=== PATIENT | female | born 1960 | race Caucasian/White ===

== ENCOUNTER 2021-01-02 12:38 | Outpatient (CLI) | payer MEDICARE, MEDICAID, SELFPAY ==
--- NOTE | 2021-01-02 | ECHO_ITS ---
Patient Info Name: Cait aM Age: 60 years : 1960 Gender: Female Ht: 65 in Wt: 173 lbs BSA: 1.92 m2 HR: 60 bpm BP: 155 / 80 mmHg Heart Rhythm: Sinus Rhythm Exam Date: 01/02/2021 1:22 PM [facility] Patient Status: Outpatient Admit Date: 01/02/2021 Staff Ordering Physician: MelissaNeris APRN Gameroom Technician: Hermila Caba RDCS Attending Provider: Melissa, Neris Elizabeth APRN Referring Physician: Liat JUSTICE; Exam Type: CA echo doppler color flow Study Info Indications - Presence of mechanical mitral valve replacement - rheumatic fever as child Complete two-dimensional, color flow and Doppler transthoracic echocardiogram is performed. Summary 1. Complete two-dimensional, color flow and Doppler transthoracic echocardiogram is performed. 2. Left ventricular chamber dimension is mildly enlarged. 3. Left ventricular systolic function is normal, estimated at 55-60%. 4. The left ventricular diastolic function is grade III diastolic dysfunction. 5. E/e' 29 is elevated. 6. Left atrial chamber dimension is moderately enlarged. 7. Right atrial chamber dimension is mildly enlarged. 8. There is mild aortic valve sclerosis. 9. There is mild aortic valve regurgitation. 10. The mechanical mitral valve leaflefts are not well seen. 11. There is mild stenosis of the mechanical mitral valve based on valve area of 1.5 cm2 by continuity equation and mean gradient of 3 mmHg. 12. There is trace tricuspid valve regurgitation. 13. No pulmonary hypertension, estimated pulmonary arterial systolic pressure is 33 mmHg. Left Ventricle E/e' 29 is elevated. Left ventricular chamber dimension is mildly enlarged. Left ventricular systolic function is normal, estimated at 55-60%. The left ventricular diastolic function is grade III diastolic dysfunction. Right Ventricle Right ventricular chamber dimension is normal. Right ventricular systolic function is normal. Left Atria Left atrial chamber dimension is moderately enlarged. Right Atria Right atrial chamber dimension is mildly enlarged. Aortic Valve The aortic valve is trileaflet. There is mild aortic valve sclerosis. There is no aortic valve stenosis. There is mild aortic valve regurgitation. Pulmonic Valve There is no pulmonic regurgitation. Mitral Valve The mechanical mitral valve leaflefts are not well seen. There is mild stenosis of the mechanical mitral valve based on valve area of 1.5 cm2 by continuity equation and mean gradient of 3 mmHg. There is no regurgitation of the mechanical mitral valve. Tricuspid Valve There is trace tricuspid valve regurgitation. No pulmonary hypertension, estimated pulmonary arterial systolic pressure is 33 mmHg. Pericardium/Pleural There is no pericardial effusion. Inferior Vena Cava Normal inferior vena cava with >50% collapse upon inspiration consistent with normal right atrial pressure, 5 mmHg. Aorta The aortic root size at the sinus of Valsalva is not well visualized. Left Ventricular Outflow Tract Name Value Normal LVOT 2D LVOT Diameter 1.7 cm LVOT Doppler LVOT Peak Gradien
[2021-01-02 15:25] LABS: Basophils Absolute Auto 0.1 K/mm3 (0.0-0.1); Basophils Percent Auto 0.8 % (0.2-1.2); Eosinophils Absolute Auto 0.3 K/mm3 (0-0.3); Eosinophils Percent Auto 3.1 % (0-4.4); Hematocrit 42.3 % (37.0-47.0); Immature Granulocyte Absolute 0.05 K/mm3 (0.00-0.031); Immature Granulocyte Percent A 0.6 % (0-0.5); Lymphocytes Absolute Auto 1.29 K/mm3 (0.9-3.2); Lymphocytes Percent Auto 15.5 % (18.3-44.2); Mean Corpuscular HGB Conc 30.7 g/dl (32-36); Mean Corpuscular Hemoglobin 26.9 pg (26-34); Mean Corpuscular Volume 87.4 fl (80-100); Mean Platelet Volume 10.5 fl (7.4-10.4); Monocytes Absolute Auto 0.6 K/mm3 (0.1-0.6); Monocytes Percent Auto 6.8 % (2.6-8.5); Neutrophils Absolute Auto 6.1 K/mm3 (1.3-6.7); Neutrophils Percent Auto 73.2 % (45.5-73.1); Platelet Count Result 191 k/mm3 (150-375); Red Blood Count 4.84 M/mm3 (4.2-5.4); Red Cell Distribution Width 15.9 % (11.5-14.5); White Blood Count 8.3 K/mm3 (4.5-10.0)
[2021-01-02 16:13] LABS: MALB Creatinine Ratio 34.9 mg/g (0-30); Microalbumin Urine Random 78.1 mg/L (0-16.7)
[2021-01-02 16:28] LABS: Free T4 Free Thyroxine 0.86 ng/mL (0.78-2.19); Vitamin D 25 Hydroxy 21.8 ng/mL
[2021-01-02 21:21] LABS: Hemoglobin A1C 5.4 % (<5.7)
[2021-01-03 13:45] LABS: Alanine Aminotransferase 16 U/L (4-35); Alkaline Phosphatase 100 U/L (38-126); Anion Gap 3 mmol/L (8-16); Aspartate Amino Transferase 30 U/L (14-36); Bilirubin,Total 0.2 mg/dL (0.2-1.3); Blood Urea Nitrogen 10 mg/dL (7-17); Calcium 9.2 mg/dL (8.4-10.2); Carbon Dioxide 29 mmol/L (22-30); Chloride 108 mmol/L (98-107); Cholesterol 212 mg/dL (0-200); Estimated Glomerular Filt Rate 56; Glucose 102 mg/dL (65-105); HDL Direct 57 mg/dL; Potassium 4.8 mmol/L (3.4-5.0); Sodium 140 mmol/L (137-145); Triglycerides 138 mg/dL (<150)
[2021-01-03 13:57] LABS: LDL Cholesterol Direct 112 mg/dL
== END 2021-01-02 12:39 | disposition home or self-care (01) ==
PROVIDERS: PCP Nurse Practitioner Family; Visit Provider Nurse Practitioner Family
DX: E11.9 Type 2 diabetes mellitus without complications (principal); E78.2 Mixed hyperlipidemia; I11.0 Hypertensive heart disease with heart failure; I50.22 Chronic systolic (congestive) heart failure; R53.83 Other fatigue; E55.9 Vitamin D deficiency, unspecified; Z95.4 Presence of other heart-valve replacement
CPT/HCPCS: 36415; 80053; 80061; 82043; 82306; 83036; 84439; 84443; 84480; 85025; 93306

== ENCOUNTER 2023-03-23 17:35 | Emergency (ER) | payer OTHER, SELFPAY ==
--- NOTE | ~2023-03-23 | XR_ITS ---
Right Hand Technique: PA, oblique, and lateral views were obtained. Clinical History: Status post fall Findings: No acute fracture or dislocation is seen. Osseous alignment is anatomic. There is moderate degenerative change of the interphalangeal joint of the thumb, and the second and third DIP joints. T here is advanced degenerative change the first CMC joint and STT articulations.. Soft tissues are unr emarkable. Impression: No fracture or dislocation. Degenerative changes at the first CMC joint, STT articulations, interphalangeal joint of the thumb, a nd second and third DIP joints, as detailed above. Reviewed, dictated and finalized at location M. Impression: No fracture or dislocation. Degenerative changes at the first CMC joint, STT articulations, interphalangeal joint of the thumb, and second and third DIP joints, as detailed above.
--- NOTE | ~2023-03-23 | XR_ITS ---
Right Shoulder Technique: AP and scapular Y views were obtained. Clinical History: Pain Findings: No acute fracture or dislocation is seen. Intramedullary cecilia with proximal an distal interl ocking screws is present in the visualized humerus, with healing fracture of the right proximal humer al shaft, as well as additional healing fracture at the mid humeral shaft. Glenohumeral and AC joints are intact. Soft tissues are unremarkable. Impression: No acute abnormality. Healing fractures of the proximal humeral shaft and mid humeral shaft, with humeral intramedullary ro d in place. Reviewed, dictated and finalized at location . Impression: No acute abnormality. Healing fractures of the proximal humeral shaft and mid humeral shaft, with hum eral intramedullary cecilia in place.
[2023-03-23 17:39] VITALS: BP 152/62; PULSE 62; RESP 20; TEMP 36.4; O2SAT 97
[2023-03-23] MEDS: ACETAMINOPHEN 325 MG TABLET 650 MG PO (17:53)
--- NOTE | 2023-03-23 18:12 | ED.UPPEXIN ---
HPI - Extremity Injury (Upper) General Chief Complaint: Extremity Injury, Upper Stated Complaint: RIght Hand Time Seen by Provider: 03/23/23 17:44 History of Present Illness HPI narrative: 63-year-old female reports for evaluation for right hand pain and swelling and right shoulder pain since yesterday. Patient says she was walking her dog and her dog jerked her to the ground, causing her to land on an outstretched hand. She is complaining of pain in her right shoulder and over the third through fifth metacarpals and the third through fifth MCPs. She denies pain to her elbow, forearm or wrist. She does report bruising to the palmar aspect of her hand. She denies hitting her head or losing consciousness. Denies other injuries acquired in the fall. Reports taking Tylenol for pain, last dose 6 hours ago. Related Data Allergies Allergy/AdvReac Type Severity Reaction Status Date / Time iodine Allergy Unknown Verified 09/18/16 06:25 Review of Systems Review of Systems: CONSTITUTIONAL: Denies fever, chills EYES: Denies visual changes, redness, or discharge. ENT: Denies rhinorrhea, congestion, sore throat, or otalgia. CARDIOVASCULAR: Denies chest pain, palpitations, or edema. RESPIRATORY: Denies cough or dyspnea. GASTROINTESTINAL: Denies abdominal pain, nausea, vomiting, or diarrhea. GENITOURINARY: Denies dysuria or hematuria. SKIN: Denies rash or itching. MUSCULOSKELETAL: See HPI NEUROLOGIC: Denies headache, numbness, dizziness, or weakness. PSYCHIATRIC: Denies anxiety or depression. [facility] Social History Social History Smoking status: Smoker, status unknown Alcohol intake: current Exam Narrative: GENERAL: Well-appearing, in no acute distress. HEAD: Normocephalic NECK: Supple. CHEST: No respiratory distress. Clear to auscultation, no adventitious breath sounds. HEART: Regular rate and rhythm. Normal peripheral pulses. Holosystolic murmur heard, patient has mechanical mitral valve EXTREMITIES: RUE: Tenderness to the GH and AC joint, w/o overlying edema or skin changes. Limited abduction which pt reports is her baseline, otherwise full ROM. Tenderness and edema to the 3-5th metacarpals and MCPs with ecchymosis over the palmar aspect. No tenderness to wrist, forearm or elbow. No snuffbox tenderness. Full range of motion of wrist. 90 degree flexion of 2nd-4th fingers, full extension of fingers. Radial pulse 2+. Cap refill less than 2. Sensation intact throughout. SKIN: Warm, dry, no rash. NEURO: No focal deficits. Alert and oriented x3. PSYCH: Normal mood and affect. Course Vital Signs Vital signs: Vital Signs Temperature 97.6 F 03/23/23 17:39 Pulse Rate 62 03/23/23 17:39 Respiratory Rate 20 03/23/23 17:39 Blood Pressure 152/62 H 03/23/23 17:39 Pulse Oximetry 97 03/23/23 17:39 Oxygen Delivery Room Air 03/23/23 17:39 Temperature 97.6 F 03/23/23 17:39 Pulse Rate 66 03/23/23 19:02 Respiratory Rate 18 03/23/23 19:02 Blood Pressure 148/76 H 03/23/23 19:02 Pulse Oximetry 99 03/23/23 19:02 Oxygen Delivery Room Air 03/23/23 17:39 MDM - Extremity Injury (Upper) MDM Narrative Medical decision making narrative: 63-year-old female reports for evaluation for right hand pain and swelling and right shoulder pain after she fell yesterday. Vital stable other than mildly elevated blood pressure. Exam significant for the above. X-ray of the shoulder shows no acute abnormality, there is evidence of healing fractures of the proximal humeral shaft and mid humeral shaft with humeral intramedullary cecilia in place. X-ray of the hand shows no acute fracture or dislocation but does show degenerative changes. Imaging discussed with the patient. Will treat for shoulder strain and ham strain. Hand placed in Lenin bandage and encouraged RICE and close follow-up with PCP. Strict ED return precautions discussed. She is agreeable to plan
[2023-03-23 19:02] VITALS: BP 148/76; PULSE 66; RESP 18; O2SAT 99
== END 2023-03-23 19:03 | disposition home or self-care (01) ==
PROVIDERS: Emergency Provider Physician Assistant; PCP Family Medicine
DX: S43.401A Unspecified sprain of right shoulder joint, initial encounter (principal); S63.91XA Sprain of unspecified part of right wrist and hand, initial encounter; W18.39XA Other fall on same level, initial encounter; Y93.K1 Activity, walking an animal
CPT/HCPCS: 73030; 73130; 99284; A9270

== ENCOUNTER 2023-05-13 10:46 | Outpatient (CLI) | payer OTHER, SELFPAY ==
--- NOTE | ~2023-05-13 | XR_ITS ---
EXAM: XR shoulder RT min 2V DATE: 05/13/2023 11:19 HISTORY: PAIN IN RIGHT SHOULDER;CERVICALGIA . COMPARISON: 03/23/2023. FINDINGS: Partially visualized uncomplicated appearing humeral fixation hardware. Decreased minerali zation. No fracture or dislocation. No lytic or blastic lesion. Partially visualized healing/healed r ight humeral proximal shaft and midshaft fractures. Mild AC and glenohumeral joint degenerative zepeda e. No erosion or periosteal change. Right midlung scar. 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 No radiographic evidence of hard guzmán-related complication. Reviewed, dictated and finalized at location K. 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 No radiogr aphic evidence of hardware-related complication.
--- NOTE | ~2023-05-13 | XR_ITS ---
XR cervical spine 4-5V 05/13/2023 11:19 Indication: Right shoulder pain Procedure: 4 view cervical spine Comparison: 12/29/2015 Findings: There is stable degenerative anterolisthesis at C4-5. There is disc narrowing at C5-6 and C 6-7. There is moderate multilevel uncinate and facet hypertrophy of the mid and lower cervical spine. No acute fracture or traumatic malalignment. No prevertebral soft tissue swelling. Impression: 1: Moderate-severe cervical spondylosis. Reviewed, dictated and finalized at location L. Impression: 1: Moderate-severe cervical spondylosis.
== END 2023-05-13 10:47 | disposition home or self-care (01) ==
PROVIDERS: PCP Family Medicine; Visit Provider Nurse Practitioner Adult Health
DX: M47.892 Other spondylosis, cervical region (principal); M19.011 Primary osteoarthritis, right shoulder
CPT/HCPCS: 72050; 73030

== ENCOUNTER 2023-09-04 10:40 | Outpatient (CLI) | payer OTHER, SELFPAY ==
[2023-09-04 11:18] LABS: Basophils Absolute Auto 0.1 K/mm3 (0.0-0.1); Basophils Percent Auto 0.8 % (0.2-1.2); Eosinophils Absolute Auto 0.3 K/mm3 (0-0.3); Eosinophils Percent Auto 2.9 % (0-4.4); Hematocrit 43.8 % (37.0-47.0); Hemoglobin 13.7 g/dL (12.0-15.0); Immature Granulocyte Absolute 0.04 K/mm3 (0.00-0.031); Immature Granulocyte Percent A 0.5 % (0-0.5); Lymphocytes Absolute Auto 1.07 K/mm3 (0.9-3.2); Lymphocytes Percent Auto 12.6 % (18.3-44.2); Mean Corpuscular HGB Conc 31.3 g/dl (32-36); Mean Corpuscular Hemoglobin 28.2 pg (26-34); Mean Corpuscular Volume 90.3 fl (80-100); Monocytes Absolute Auto 0.7 K/mm3 (0.1-0.6); Monocytes Percent Auto 7.9 % (2.6-8.5); Neutrophils Absolute Auto 6.4 K/mm3 (1.3-6.7); Neutrophils Percent Auto 75.3 % (45.5-73.1); Platelet Count Result 210 k/mm3 (150-375); Red Blood Count 4.85 M/mm3 (4.2-5.4); Red Cell Distribution Width 14.1 % (11.5-14.5); White Blood Count 8.5 K/mm3 (4.5-10.0)
[2023-09-04 11:30] LABS: Alanine Aminotransferase 15 U/L (6-35); Albumin Level 3.9 g/dL (3.5-5.1); Alkaline Phosphatase 109 U/L (38-126); Anion Gap 7 mmol/L (8-16); Aspartate Amino Transferase 26 U/L (14-36); Bilirubin,Total 0.5 mg/dL (0.2-1.3); Blood Urea Nitrogen 11 mg/dL (7-17); Calcium 8.6 mg/dL (8.4-10.2); Carbon Dioxide 27 mmol/L (22-30); Chloride 104 mmol/L (98-107); Cholesterol 233 mg/dL (0-200); Estimated Glomerular Filt Rate > 60; Glucose 102 mg/dL (65-110); HDL Direct 66 mg/dL; Potassium 4.1 mmol/L (3.4-5.0); Sodium 138 mmol/L (137-145); Triglycerides 71 mg/dL (<150)
[2023-09-04 11:41] LABS: LDL Cholesterol Direct 128 mg/dL
== END 2023-09-04 10:41 | disposition home or self-care (01) ==
PROVIDERS: PCP Family Medicine; Visit Provider Family Medicine
DX: E78.5 Hyperlipidemia, unspecified (principal); J44.9 Chronic obstructive pulmonary disease, unspecified; F41.9 Anxiety disorder, unspecified; Z79.01 Long term (current) use of anticoagulants; R53.83 Other fatigue
CPT/HCPCS: 36415; 80053; 80061; 85025

== ENCOUNTER 2023-12-19 12:55 | Outpatient (CLI) | payer OTHER, SELFPAY ==
--- NOTE | ~2023-12-19 | DEXA_ITS ---
Bone Density Report Name: TIKA GALO Age: 63 Sex: Female Ethnicity: White Date of : 1960 Indication: postmenopausal; screening for osteoporosis; height loss; history of glucocorticoids; asthma or emphysema; hysterectomy; Referring Provider: NAOMY, EDISON Desai Study: Bone densitometry was performed. Exam Date: December 19, 2023 Accession number: [id number] Bone Density: Region BMD T-score Z-score Classification AP Spine(L1-L4) 0.750 -2.7 -0.9 Osteoporosis Femoral Neck (Left) 0.579 -2.4 -0.9 Osteopenia Total Hip (Left) 0.675 -2.2 -0.9 Osteopenia World Health Organization criteria for BMD impression classify patients as: Normal (T-score at or above -1.0), Osteopenia (T-score between -1.0 and -2.5), or Osteoporosis (T-score at or below -2.5). 10-year Fracture Risk: FRAX not reported because: Some T-score for Spine Total or Hip Total or Femoral Neck at or below -2.5 Treated for osteoporosis Clinical Information Provided by Patient: Smokes Has taken Glucocorticoids Is being treated for osteoporosis Has used the following medications: Vitamin D Has the following medical conditions: Asthma or Emphysema, Hysterectomy Patient maximum height was 67 Menopause Age: 30 No regular weight bearing exercise Does not regularly consume dairy products Drinks caffeinated beverages Onset of menses at age 10 Number of children 3 Impression: The patient has osteoporosis, based on the Total Spine T-score. The patient has risk factors, including: smoking, history of glucocorticoid therapy. Discussion: It is important to ask patients whether they are taking their medications and to encourage continued and appropriate compliance with their osteoporosis therapies to reduce fracture risk. It is also important to review their risk factors and encourage appropriate calcium and vitamin D intakes, exercise, fall prevention and other lifestyle measures. Follow-Up: Consider a repeat BMD and Vertebral Fracture Assessment (VFA) exam in 2 years or sooner if medically necessary, to reassess this patient's status. Reported by: MYRANDA on 12/19/2023 1:20:00 PM. Reviewed, dictated and finalized at location AMarija MALDONADO
== END 2023-12-19 12:56 | disposition home or self-care (01) ==
PROVIDERS: PCP Family Medicine; Visit Provider Registered Nurse
DX: Z78.0 Asymptomatic menopausal state (principal); M81.0 Age-related osteoporosis without current pathological fracture; M85.852 Other specified disorders of bone density and structure, left thigh
CPT/HCPCS: 77080

== ENCOUNTER 2024-02-25 09:53 | Outpatient (CLI) | payer OTHER, SELFPAY ==
[2024-02-25 10:15] LABS: Basophils Absolute Auto 0.1 K/mm3 (0.0-0.1); Eosinophils Absolute Auto 0.2 K/mm3 (0-0.3); Eosinophils Percent Auto 2.3 % (0-4.4); Hematocrit 41.4 % (37.0-47.0); Hemoglobin 12.7 g/dL (12.0-15.0); Immature Granulocyte Absolute 0.06 K/mm3 (0.00-0.031); Immature Granulocyte Percent A 0.8 % (0-0.5); Lymphocytes Absolute Auto 1.05 K/mm3 (0.9-3.2); Lymphocytes Percent Auto 13.5 % (18.3-44.2); Mean Corpuscular HGB Conc 30.7 g/dl (32-36); Mean Corpuscular Volume 84.7 fl (80-100); Mean Platelet Volume 10.3 fl (7.4-10.4); Monocytes Absolute Auto 0.7 K/mm3 (0.1-0.6); Neutrophils Absolute Auto 5.7 K/mm3 (1.3-6.7); Neutrophils Percent Auto 73.4 % (45.5-73.1); Platelet Count Result 175 k/mm3 (150-375); Red Blood Count 4.89 M/mm3 (4.2-5.4); Red Cell Distribution Width 15.8 % (11.5-14.5); White Blood Count 7.8 K/mm3 (4.5-10.0)
[2024-02-25 10:42] LABS: Alanine Aminotransferase 16 U/L (6-35); Albumin Level 4.3 g/dL (3.5-5.1); Alkaline Phosphatase 92 U/L (38-126); Anion Gap 7 mmol/L (4-12); Aspartate Amino Transferase 32 U/L (14-36); Bilirubin,Total 0.6 mg/dL (0.2-1.3); Blood Urea Nitrogen 13 mg/dL (7-17); Calcium 8.9 mg/dL (8.4-10.2); Carbon Dioxide 27 mmol/L (22-30); Chloride 105 mmol/L (98-107); Estimated Glomerular Filt Rate > 60; Glucose 99 mg/dL (65-110); Potassium 4.1 mmol/L (3.4-5.0); Sodium 139 mmol/L (137-145)
== END 2024-02-25 09:54 | disposition home or self-care (01) ==
LOC: ANHLAB 09:57
PROVIDERS: PCP Family Medicine; Visit Provider Registered Nurse
DX: E78.5 Hyperlipidemia, unspecified (principal); J44.9 Chronic obstructive pulmonary disease, unspecified; Z79.01 Long term (current) use of anticoagulants
CPT/HCPCS: 36415; 80053; 85025

== ENCOUNTER 2024-03-01 15:11 | Outpatient (CLI) | payer OTHER, SELFPAY ==
[2024-03-01 15:49] LABS: Cholesterol 229 mg/dL (0-200); HDL Direct 61 mg/dL; Triglycerides 132 mg/dL (<150)
[2024-03-01 16:10] LABS: LDL Cholesterol Direct 126 mg/dL
[2024-03-02 07:51] LABS: Hemoglobin A1C 5.6 % (<5.7)
== END 2024-03-01 15:12 | disposition home or self-care (01) ==
LOC: ANHLAB 15:14
PROVIDERS: PCP Family Medicine; Visit Provider Family Medicine
DX: E78.5 Hyperlipidemia, unspecified (principal); E11.9 Type 2 diabetes mellitus without complications
CPT/HCPCS: 36415; 80061; 83036

== ENCOUNTER 2024-07-22 13:50 | Outpatient (CLI) | payer OTHER, SELFPAY ==
[2024-07-22 14:18] LABS: Basophils Absolute Auto 0.1 K/mm3 (0.0-0.1); Basophils Percent Auto 0.9 % (0.2-1.2); Eosinophils Absolute Auto 0.2 K/mm3 (0-0.3); Eosinophils Percent Auto 2.6 % (0-4.4); Hematocrit 39.9 % (37.0-47.0); Hemoglobin 12.3 g/dL (12.0-15.0); Immature Granulocyte Absolute 0.04 K/mm3 (0.00-0.031); Immature Granulocyte Percent A 0.5 % (0-0.5); Lymphocytes Absolute Auto 1.31 K/mm3 (0.9-3.2); Lymphocytes Percent Auto 15.4 % (18.3-44.2); Mean Corpuscular HGB Conc 30.8 g/dl (32-36); Mean Corpuscular Hemoglobin 25.8 pg (26-34); Mean Corpuscular Volume 83.6 fl (80-100); Mean Platelet Volume 9.9 fl (7.4-10.4); Monocytes Absolute Auto 0.7 K/mm3 (0.1-0.6); Monocytes Percent Auto 7.9 % (2.6-8.5); Neutrophils Absolute Auto 6.2 K/mm3 (1.3-6.7); Neutrophils Percent Auto 72.7 % (45.5-73.1); Platelet Count Result 167 k/mm3 (150-375); Red Blood Count 4.77 M/mm3 (4.2-5.4); Red Cell Distribution Width 16.4 % (11.5-14.5); White Blood Count 8.5 K/mm3 (4.5-10.0)
[2024-07-22 14:32] LABS: Alanine Aminotransferase 20 U/L (6-35); Alkaline Phosphatase 91 U/L (38-126); Anion Gap 2 mmol/L (4-12); Aspartate Amino Transferase 30 U/L (14-36); Bilirubin,Total 0.6 mg/dL (0.2-1.3); Blood Urea Nitrogen 14 mg/dL (7-17); Calcium 8.6 mg/dL (8.4-10.2); Carbon Dioxide 30 mmol/L (22-30); Chloride 106 mmol/L (98-107); Cholesterol 169 mg/dL (0-200); Estimated Glomerular Filt Rate > 60; Glucose 99 mg/dL (65-110); HDL Direct 68 mg/dL; Potassium 4.7 mmol/L (3.4-5.0); Sodium 138 mmol/L (137-145); Triglycerides 78 mg/dL (<150)
[2024-07-22 15:25] LABS: LDL Cholesterol Direct 72 mg/dL
[2024-07-22 19:19] LABS: Hepatitis C Virus Antibody Negative (Negative)
== END 2024-07-22 13:51 | disposition home or self-care (01) ==
PROVIDERS: PCP Family Medicine; Visit Provider Family Medicine
DX: E78.5 Hyperlipidemia, unspecified (principal); I10 Essential (primary) hypertension; Z11.59 Encounter for screening for other viral diseases
CPT/HCPCS: 36415; 80053; 80061; 85025; 86803

== ENCOUNTER 2024-10-14 07:30 | Outpatient (CLI) | payer OTHER, SELFPAY | END 2024-10-14 07:31 | disposition home or self-care (01) | PROVIDERS: PCP Family Medicine; Visit Provider Internal Medicine Cardiovascular Disease | DX: I35.8 Other nonrheumatic aortic valve disorders (principal); I35.0 Nonrheumatic aortic (valve) stenosis; Z95.2 Presence of prosthetic heart valve | CPT/HCPCS: 93306 ==

== ENCOUNTER 2025-04-22 08:51 | Outpatient (CLI) | payer OTHER, SELFPAY ==
--- OUTSIDE RECORDS SUMMARY | 2023-01-14 | XMS_ITS | Encounter Summary ---
Author Organization [facility] Address [address] [place] [address] Care Team Providers Care Lead Manufacturing Engineer Name Role Phone Shmuel Langley MD Primary Care Provider [phone] Radha Davidson MD Unavailable [phone] Rubina Bach MD Unavailable [phone] Encounter Details Date Type Department Care Team (Late st Contact Info) Description 01/14/2023 Hospital Encounter [facility] [address] [place] [address] Raquel Gill MD [address] [facility] [place] [address] [place] [id number] [address] [place] [address] [employer] Social History Tobacco Use Types Packs/Day Years Used Date Smoking Tobacco: Every Day Cigarettes 0.5 37 Comments:4 cigarettes a day plus e cigarettes Alcohol Use Standard Drinks/Week Comments No 0 (1 standard drink = 0.6 oz pur e alcohol) AUDIT-C Answer Date Recorded Q1: How often do you have a drink containing alcohol? Never 01/04/2023 Q2: How many drinks containi ng alcohol do you have on a typical day when you are drinking? Patient does not drink Q3: How often do you have si x or more drinks on one occasion? Never 01/04/2023 Overall Financial Resource Strain (CARDIA) Answe r Date Recorded How hard is it for you to pa y for the very basics like food, housing, medical care, and heating? Hard 01/04/2023 [facility] [place] [facility] - Occupational Stress Questionnaire Answer Date Recorded Do you feel stress - tense, restless, nervous, or anxious, or unable to sleep at night because your mind is troubled all the time - these days? Not at all 01/04/2023 Hunger Vital Sign Answer Date Recorded Within the past 12 months, y ou worried that your food would run out before you got the money to buy more. Never true 01/07/20 23 Within the past 12 months, t he food you bought just didn't last and you didn't have money to get more. Never true 01/06/2023 PRAPARE - Transportation Answer Date Re corded In the past 12 months, has l ack of transportation kept you from medical appointments or from getting medications? No 12/17 In the past 12 months, has l ack of transportation kept you from meetings, work, or from getting things needed for daily living? No 01/04/2023 Housing Stability Vital Sign Answer Samy e Recorded In the last 12 months, was t here a time when you were not able to pay the mortgage or rent on time? No 01/04/2023 In the last 12 months, how many places have you lived? 1 01/04/2023 In the last 12 months, was t here a time when you did not have a steady place to sleep or slept in a alf (including now)? 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 Answer Date of Assessment Author No 01/04/2023 10:45 PM Mateus Renae RN * Is person blind or have serious difficulty seeing? Answer Date of Assessment Author No 01/04/2023 10:45 PM Mateus Renae RN * Does person have serious difficulty walking/climbing stairs? Answer Date of Assessment Author No 01/04/2023 10:45 PM Mateus Renae RN * Does person have difficulty dressing/bathing? Answer Date of Assessment Author No 01/04/2023 10:45 PM CDT Mateus Patel RN * Does person have difficulty doing errands alone? Answer Date of Assessment Author No 01/04/2023 10:45 PM CDT Mateus Patel RN documented as of this encounter Mental Status * Does person have difficulty concentrating/remembering/making decisions? Answer Entry Date Author No 01/04/2023 10:45 PM CDT Mateus Patel RN documented in this encounter Plan of Treatment Not on file documented as of this encounter Visit Diagnoses Not on filedocumented in this encounter Care Teams Lead Manufacturing Engineer Relationship Specialty Start Date End Date Shmuel Langley MD [address] [facility] [address] [place] [address] PCP - General 09/08/12 [place] [address] [id number] Machine Packager Cardiovascular Disease 07/06/13 [place] [address] [facility] [address] [place] [id number] Pulmonary Disease 05/06/16 documented as of this encounter
--- NOTE | ~2025-04-22 | US_ITS ---
EXAMINATION: US retroperitoneal duplex ltd DATE: 04/22/2025 09:56 INDICATION: Essential/primary hypertension TECHNIQUE: Multiple grayscale, color Doppler, and pulsed Doppler images of the kidneys and renal arteries were obtained. COMPARISON: None. FINDINGS: The aorta peak systolic velocity is 90 cm/s. There is normal renal contour and echogenicity bilaterally. The right kidney measures 10.7 x 4.6 x 4.7 cm and the left 9.6 x 4.2 x 4.1 cm. There are no focal renal lesions identified. There is no hydronephrosis. The right renal artery peak systolic velocity is 123 cm/s in the proximal segment, 106 cm/s in the mid segment, and 60 cm/s in the distal segment. Intrarenal arterial resistive indices in the right kidney of 0.64-0.72. The left renal artery peak systolic velocity is 107 cm/s in the proximal segment, 82 cm/s in the mid segment, and 57 cm/s in the distal segment. Intrarenal arterial resistive indices in the left kidney of 0.74-0.78. IMPRESSION: 1. No Doppler evidence of renal artery stenosis. 2. Nonspecific borderline right-sided and mild increased left-sided bilateral intrarenal arterial resistive indices. Reviewed, dictated and finalized at location A. IMPRESSION: 1. No Doppler evidence of renal artery stenosis. 2. Nonspecific borderline right-sided and mild increased left-sided bilateral i ntrarenal arterial resistive indices.
--- OUTSIDE RECORDS SUMMARY | 2025-04-22 08:58 | XMS_ITS | Clinical Summary ---
Author Organization [facility] Address [address] [place] [address] Care Team Providers Care Ceramic Engineering Professor Name Role Phone JadaShmuel marin Primary Care Provider [phone] Allergies Active Allergy Reactions Criticality Noted Date Comments Iodine Hives,Rash Medium 06/18/2013 Medications simvastatin (ZOCOR) 20 MG tablet Take 1 tablet (20 mg total) by mouth nightly. Active omeprazole (PriLOSEC) 20 MG capsule Take 1 capsule (20 mg total) by mouth in the morning. Active aspirin 81 MG EC tablet Take 1 tablet (81 mg total) by mouth nightly. Active busPIRone (BUSPAR) 5 MG tablet Take 1 tablet (5 mg total) by mouth in the morning and 1 tablet (5 mg total) before bedtime. 60 tablet 3 Active famotidine (PEPCID) 20 MG tablet Take 1 tablet (20 mg total) by mouth in the morning and 1 tablet (20 mg total) before bedtime. 60 tablet 3 Active sertraline (ZOLOFT) 25 MG tablet Take 5 tablets (125 mg total) by mouth in the morning. 30 tablet 3 Active albuterol (PROVENTIL HFA) 108 (90 Base) MCG/ACT inhaler Inhale 2 puffs Every 6 hours as needed. for wheezing or shortness of breath. 3.7 g 3 Active acetaminophen (TYLENOL) 500 MG tablet Take 2 tablets (1,000 mg total) by mouth every 6 (six) hours as needed for mild pain. 0 3 Active cholecalciferol (VITAMIN D3) 25 MCG (1000 UT) tablet Take 1 tablet (1,000 Units total) by mouth in the morning. 30 tablet 3 Active iron polysaccharides (Ferrex 150) 150 MG capsule Take 1 capsule (150 mg total) by mouth in the morning. 30 capsule 3 Active traZODone (DESYREL) 100 MG tablet Take 1 tablet (100 mg total) by mouth nightly. 30 tablet 3 Active Umeclidinium-Vilant vernon 62.5-25 MCG/ACT aerosol powder Inhale 1 puff RT Daily. 14 each 3 Active ALPRAZolam (XANAX) 0.25 MG tablet Take 1 tablet (0.25 mg total) by mouth 3 (three) times a day as needed for anxiety for up to 5 doses. 5 tablet 3 Active calcium carbonate (TUMS) 500 MG chewable tablet Chew 1 tablet (500 mg total) daily with breakfast. 0 3 Active Active Problems Problem Noted Date Diagnosed Date Warfarin monitoring status 01/15/2023 Other abnormalities of gait and mobility 023 Age-related osteoporosis wit h current pathological fracture, right femur 01/14/2023 Closed fracture of right femur 01/04/2023 Closed fracture of shaft of humerus 01/04/2023 Closed fracture of surgical neck of humerus 12/17 Chronic obstructive pulmonary disease 01/31/2020 Congestive heart failure 01/31/2020 Overview (01/15/2023): due to MR due to MR Gastroesophageal reflux disease 01/31/2020 History of mechanical prosthetic mitral valve re placement 09/26/2013 Overview (11/21/2023): November SNOMED Diagnostic import Immunizations Immunization Administration Dates Next Due Pfizer SARS-CoV-2 Vaccination 10/19/2020 Social History Tobacco Use Types Packs/Day Years Used Date Smoking Tobacco: Every Day Cigarettes 0.5 38.8 Started: 06/28/1986 Smokeless Tobacco: Never Tobacco Cessation:Ready to Q uit: No; Counseling Given: Yes Alcohol Use Standard Drinks/Week Comments Never 0 (1 standard drink = 0.6 oz pur e alcohol) Comments Unknown Sex and Gender Information Value Date Recorded Sex Assigned at Not on file Legal Sex Female 5:18 PM EDT Gender Identity Not on file Sexual Orientation Not on file Last Filed Vital Signs Vital Sign Reading Time Taken Comments Blood Pressure 109/60 01/22/2023 8:00 PM CDT Pulse 68 01/22/2023 8:00 PM CDT Temperature 36.6 C (97.8 F) 01/22/2023 8:00 PM CDT Respiratory Rate 18 01/22/2023 8:00 PM CDT Oxygen Saturation 95% 01/22/2023 8:00 PM CDT Inhaled Oxygen Concentration - - Weight 70.1 kg (154 lb 7 oz) 01/19/2023 5:41 AM CDT Height 165.1 cm (5' 5) 01/14/2023 3:17 PM CDT Body Mass Index 25.7 01/14/2023 3:17 PM CDT Plan of Treatment Health Maintenance Due Date Last Done Comments CT Colonography 1960 Colonoscopy 1960 Colorectal Cancer Screening 1960 FIT-DNA (Cologuard) 1960 FIT 1960 FOBT 1960 Sigmoidoscopy 1960 Annual Visit Topic 1959 MMR Vaccines (1 of 1 - Standard series) 1959 Hepatitis C Screening 1976 Pneumococcal Vaccine: 65+ Years (1 of 4 - PCV) 1977 Mammogram 1998 DTaP/Tdap/Td Vaccines (3 - T d or Tdap) 01/04/2033 01/04/2023, 05/24/2015 HIB Vaccines Aged Out No longer eligi ble based on patient's age to complete this topic HPV Vaccines Aged Out No longer eligi ble based on patient's age to complete this topic Hepatitis A Vaccines Aged Out No long er eligible based on patient's age to complete this topic Hepatitis B Vaccines Aged Out No long er eligible based on patient's age to complete this topic IPV Vaccines Aged Out No longer eligi ble based on patient's age to complete this topic Meningococcal Vaccine Aged Out No minal michelle eligible based on patient's age to complete this topic Advance Directives * Full Resuscitation (Latest Code Status on File) Date Activated Date Inactivated Comments 01/14/2023 3:50 PM 01/23/2023 2:05 PM Care Teams Ceramic Engineering Professor Relationship Specialty Start Date End Date ShivamCliftonShmuel [address] [place] [phone] PCP - General 01/15/23
--- OUTSIDE RECORDS SUMMARY | 2025-04-22 08:58 | XMS_ITS | Clinical Summary ---
Author Organization [facility] er Address [address] [place] [id number] Care Team Providers Care Metal Trim Erector Name Role Phone Shmuel Langley MD Primary Care Provider [phone] Allergies Active Allergy Reactions Criticality Noted Date Comments Iodine Hives Medium 01/30/2020 Medications albuterol HFA (PROVENTIL HFA,VENTOLIN HFA,PROAIR HFA) 90 mcg/actuation inhaler Inhale 1 puff as needed for wheezing or shortness of breath 10/27/19 20 Active ALPRAZolam (XANAX) 0.5 mg tablet Take 0.5 mg by mouth as needed for anxiety 01/07/20 20 Active famotidine (PEPCID) 20 mg tablet Take 20 mg by mouth nightly 01/08/20 20 Active metoprolol tartrate (LOPRESSOR) 25 mg immediate release tablet Take 25 mg by mouth 2 (two) times a day 01/08/20 20 Active sertraline (ZOLOFT) 100 mg tablet Take 125 mg by mouth nightly 100 mg and 25 mg tablet to equal 125 mg 01/24/20 20 Active umeclidinium-vilant Michelet (ANORO ELLIPTA) 62.5-25 mcg/actuation blister with device Inhale 1 puff every morning 05/06/20 16 Active warfarin (COUMADIN) 3 mg tabletIndications:M echanical Valve Thromboembolism Prophylaxis Take 3 mg by mouth nightly 01/26/20 20 Active furosemide (LASIX) 20 mg tablet Take 20 mg by mouth every morning 06/20/20 16 Active omeprazole (PriLOSEC) 20 mg capsule Take 20 mg by mouth 2 (two) times a day 01/11/20 20 Active ondansetron (ZOFRAN) 8 mg tablet Take 8 mg by mouth as needed for nausea or vomiting 01/11/20 20 Active potassium chloride ER 10 mEq CR tablet Take 20 mEq by mouth 2 (two) times a day 2 tablets 01/11/20 20 Active gabapentin (NEURONTIN) 100 mg capsule Take 100 mg by mouth 2 (two) times a day 12/05/19 21 Active albuterol 2.5 mg /3 mL (0.083 %) nebulizer solution Take 2.5 mg by nebulization as needed for wheezing or shortness of breath 07/19/20 22 Active simvastatin (ZOCOR) 40 mg tablet Take 40 mg by mouth nightly Active traZODone (DESYREL) 100 mg tablet Take 100 mg by mouth nightly Active busPIRone (BUSPAR) 5 mg tablet Take 5 mg by mouth 2 (two) times a day Active HYDROcodone-acetami nophen (NORCO) 5-325 mg per tabletIndications:P ain Take 1 tablet by mouth every 4 (four) hours as needed for pain 32 tablet 10/14/19 23 Active senna (SENOKOT) 8.6 mg tabletIndications:T sherie while taking narcotics Take 1 tablet by mouth 2 (two) times a day 28 tablet 10/14/19 23 Active traMADoL (ULTRAM) 50 mg tablet Take 1 tablet (50 mg total) by mouth every 6 (six) hours as needed for pain 28 tablet 11/08/19 23 Active Active Problems Problem Noted Date Diagnosed Date Painful orthopaedic hardware 10/09/2022 Overview (10/09/2022): Added automatically from request for surgery [id number] Mitral valve disorder 12/28/2020 Overview (12/28/2020): Osteoporosis with current pathological fracture 12/28/2020 Overview (12/28/2020): T-score spine -3.0 Assessment & Plan (12/28/2020 2:33 PM CDT): Given the degree of OP I would recommend getting some basic levels as the Ca level lowish. I would like to get her on Ca C03 500 bid and Vit D 2000/d and then after about a month start the Tymlos. Hypocalcemia 12/28/2020 Assessment & Plan (12/28/2020 2:34 PM CDT): naya repeat along w/ d levels Chronic obstructive pulmonary disease (COPD) Congestive heart failure 01/31/2020 Overview (01/31/2020): due to MR Essential hypertension 01/31/2020 Acute pain due to trauma 01/31/2020 Anticoagulated on Coumadin 01/31/2020 RLS (restless legs syndrome) 01/31/2020 GERD (gastroesophageal reflux disease) 0 Insomnia 01/31/2020 Mixed hyperlipidemia 01/31/2020 Depression 01/31/2020 Deepali-prosthetic supracondylar fracture of femur 01/30/2020 Overview (12/28/2020): surgically repaired 01/2020 Referred to bone health seen 12/2020 Mitral and aortic insufficiency 09/26/2013 S/P MVR (mitral valve replacement) 09/26/2013 Immunizations Immunization Administration Dates Next Due Influenza, Quadrivalent, Millie l Culture-based MDCK, Preservative Free, Antibiotic Free, Intramuscular 06/07/2020 Influenza, Quadrivalent, Spl it, Intramuscular 06/01/2019,06/30/2015 Influenza, Quadrivalent, Spl it, Preservative Free, Intramuscular 06/01/2019,05/26/2018 Influenza, Trivalent, IM (MDV) 06/06/2021,2016,06/24/2012 Influenza, Trivalent, Preser vative Free, Intramuscular 05/29/2016 Influenza, Unspecified 05/30/2016,05/18/2013 Moderna SARS-CoV-2 Monovalen t Vaccination (12+ YRS) 11/16/2020,10/19/2020 Pneumococcal Polysaccharide PPV23 06/17/2013 Tdap 05/24/2015 Surgical History Surgery Date Site/Laterality Comments REPLACEMENT TOTAL KNEE 08/18/2016 - 08/17/2017 Right BACK SURGERY 08/18/2000 - 08/17/2001 MITRAL VALVE REPLACEMENT 09/18/2013 - 10/15/2013 SCOTT HYSTERECTOMY 1990s ORIF DISTAL FEMUR FRACTURE 01/17/2020 - 02/15/2020 Right IM nailing COLONOSCOPY 08/18/2002 - 08/17/2003 Medical History Medical History Date Comments Depression Anxiety Hypertension Diabetes mellitus (HCC) Family History Medical History Relation Name Comments Heart disease Brother Heart disease Mother Relation Name Status Comments Brother Mother Social History Tobacco Use Types Packs/Day Years Used Date Smoking Tobacco: Every Day Cigarettes 1.3 58.7 Started: 1966 Passive Smoke Exposure: Current Smokeless Tobacco: Never Comments:On and off Alcohol Use Standard Drinks/Week Comments Never 0 (1 standard drink = 0.6 oz pur e alcohol) Social Connection and Isolation Panel Answer Date Recorded In a typical week, how many times do you talk on the phone with family, friends, or neighbors? More than three times a week 02/03/2020 How often do you get togethe r with friends or relatives? More than three times a week 02/03/2020 How often do you attend chur ch or presybeterian services? Never 02/03/2020 Do you belong to any clubs o r organizations such as hoahaoism groups, unions, fraternal or athletic groups, or school groups? No 02/03/2020 How often do you attend meet ings of the clubs or organizations you belong to? Never 02/03/2020 Are you , , di vorced, , never , or living with a partner? 02/03/2020 AUDIT-C Answer Date Recorded Q1: How often do you have a drink containing alcohol? Never 10/09/2022 Q2: How many drinks containi ng alcohol do you have on a typical day when you are drinking? Patient does not drink 3 Q3: How often do you have si x or more drinks on one occasion? Never 10/09/2022 Overall Financial Resource Strain (CARDIA) Answe r Date Recorded How hard is it for you to pa y for the very basics like food, housing, medical care, and heating? Not hard at all 02/03/2020 Hunger Vital Sign Answer Date Recorded Within the past 12 months, y ou worried that your food would run out before you got the money to buy more. Never true 02/03/20 20 Within the past 12 months, t he food you bought just didn't last and you didn't have money to get more. Never true 02/03/2020 PRAPARE - Transportation Answer Date Re corded In the past 12 months, has l ack of transportation kept you from medical appointments or from getting medications? No 01/16 In the past 12 months, has l ack of transportation kept you from meetings, work, or from getting things needed for daily living? No 02/03/2020 Personal Safety Answer Date Recorded Getting School Help Needed Denies 10/12 Comments No Sex and Gender Information Value Date Recorded Sex Assigned at Not on file Legal Sex Female 7:46 PM PROGRAM SPECIALIST Gender Identity Not on file Sexual Orientation Not on file Obstetrics History Last Filed Vital Signs Vital Sign Reading Time Taken Comments Blood Pressure 129/63 10/14/2022 3:10 PM PROGRAM SPECIALIST Pulse 62 10/14/2022 3:10 PM PROGRAM SPECIALIST Temperature 36.5 C (97.7 F) 10/14/2022 3:40 PM PROGRAM SPECIALIST Respiratory Rate 12 10/14/2022 3:10 PM PROGRAM SPECIALIST Oxygen Saturation 92% 10/14/2022 3:10 PM PROGRAM SPECIALIST Inhaled Oxygen Concentration - - Weight 76.2 kg (168 lb) 10/09/2022 3:24 PM PROGRAM SPECIALIST Height 167.6 cm (5' 6) 10/09/2022 3:24 PM PROGRAM SPECIALIST Body Mass Index 27.12 10/09/2022 3:24 PM PROGRAM SPECIALIST Plan of Treatment Health Maintenance Due Date Last Done Comments Breast Cancer Screening-Mammogram 1960 Colon Cancer Screening-Colonoscopy 1960 Depression Screening 1960 Hepatitis C Screening 1960 Hepatitis B Screening 1976 Zoster Vaccine (1 of 2) 2008 Pneumococcal vaccine 65+ (2 of 2 - PCV) 06/17/2014 06/17/2013 Fall Risk Assessment 02/01/2021 02/02/2020 Osteoporosis Screening-Bone Density Scan 12/28/2022 12/28/2020 Well Visit 65+ 2023 Covid-19 Vaccine ( - 2023-2 5 season) 2024 08/14/2021, 11/16/2020, 10/19/2020 Influenza Vaccine (#1) 2025 , 06/07/2020, 06/01/2019, Additional history exists DTaP/Tdap/Td Vaccine (2 - Td or Tdap) 05/24/2025 05/24/2015 Medical Devices Implanted Type Area Personnel Analyst Device Identifier Shelf Expiration Date Model / Serial / Lot [employer] [id number] 5mm 75mm Lock Full Thread Screw Bone Titanium Sterile T2 Nail - [id number] Implanted:Qty: 2 on 02/01/2020 by Franco Benavides MD at [facility] Right: Femur [employer] [id number] 02/15/2024 3956-6882 S / / [id number] [employer] 1896-5037s 5mm 37.5mm Lock Full Thread Screw Bone Titanium Sterile T2 Nail - [id number] Implanted:Qty: 1 on 02/01/2020 by Franco Benavides MD at [facility] Right: [employer] [id number] 12/15/20229206-8409 S / / [id number] [employer] [id number] 5mm 37.5mm Lock Full Thread Screw Bone Titanium Sterile T2 Nail - [id number] Implanted:Qty: 1 on 02/01/2020 by Franco Benavides MD at [facility] Right: Femur [employer] [id number] 11/16/202318950529-0594 S / / [id number] Explanted Type Area Personnel Analyst Device Identifier Shelf Expiration Date Model / Serial / Lot [employer] 1806-0050s Zena T2 3mm 285mm Retrograde Supracondylar Wire Fixation - [id number] Explanted:Qty: 1 on 02/01/2020 at [facility] Right: Femur [employer] [id number] 07/17/2024 0270-8631 S / / [id number] Synthes 02.231.290 5mm 90mm Variable Angle Self Tap Lock Stardrive Condylar T25 - [id number] Implanted:Qty: 1 on 02/01/2020 by Franco Benavides MD at [facility] Explanted:Qty: 1 on 10/14/2022 by Franco Benavides MD at [facility] Right: Femur [employer] I 02.231.29 0 / / Synthes 02.231.238 5mm 38mm Variable Angle Self Tap Lock St[employer]rive Condylar T25 - [id number] Implanted:Qty: 1 on 02/01/2020 by Franco Benavides MD at [facility] Explanted:Qty: 1 on 10/14/2022 by Franco Benavides MD at [facility] Right: Femur [employer] I 02.231.23 8 / / Synthes 02.231.240 5mm 40mm Variable Angle Self Tap Lock St[employer]rive Condylar T25 - [id number] Implanted:Qty: 1 on 02/01/2020 by Franco Benavides MD at [facility] Explanted:Qty: 1 on 10/14/2022 by Franco Benavides MD at [facility] Right: Femur [employer] I 02.231.24 0 / / Synthes 02.231.275 5mm 75mm Variable Angle Self Tap Lock St[employer]rive Condylar T25 - [id number] Implanted:Qty: 1 on 02/01/2020 by Franco Benavides MD at [facility] Explanted:Qty: 1 on 10/14/2022 by Franco Benavides MD at [facility] Right: Fem[employer] I 02.231.27 5 / / Synthes 02.231.285 5mm 85mm Variable Angle Self Tap Lock [employer]rive Condylar T25 - [id number] Implanted:Qty: 1 on 02/01/2020 by Franco Benavides MD at [facility] Explanted:Qty: 1 on 10/14/2022 by Franco Benavides MD at [facility] Right: [employer] I 02.231.28 5 / / Synthes 214.895 4.5mm 8mm 95mm Self Tap Large Hexagonal Socket Cortical Screw - [id number] Implanted:Qty: 1 on 02/01/2020 by Franco Benavides MD at [facility] Explanted:Qty: 1 on 10/14/2022 by Franco Benavides MD at [facility] Right: Femur [employer] I 214.895 / / Synthes 02.231.244 5mm 44mm Variable Angle Self Tap Lock Stardrive Condylar T25 - [id number] Implanted:Qty: 1 on 02/01/2020 by Franco Benavides MD at [facility] Explanted:Qty: 1 on 10/14/2022 by Franco Benavides MD at [facility] Right: Femur Synthes I 02.231.24 4 / / [employer] 1896-5080s 5mm 80mm Lock Full Thread Screw Bone Titanium Sterile T2 Nail - [id number] Implanted:Qty: 1 on 02/01/2020 by Franco Benavides MD at [facility] Explanted:Qty: 1 on 10/14/2022 by Franco Benavides MD at [facility] Right: Femur [employer] [id number] 12/16/2023 7253-9406 S / / [id number] [employer] 1896-5055s 5mm 55mm Lock Full Thread Screw Bone Titanium Sterile T2 Nail - [id number] Implanted:Qty: 1 on 02/01/2020 by Franco Benavides MD at [facility] Explanted:Qty: 1 on 10/14/2022 by Franco Benavides MD at [facility] Right: [employer] [id number] 01/16/2024 4336-3278 S / / [id number] Synthes 02.124.418 Lcp Combi 370mm 18 Hole 4 Column Thread Variable Angle Condylar - [id number] Implanted:Qty: 1 on 02/01/2020 by Franco Benavides MD at [facility] Explanted:Qty: 1 on 10/14/2022 by Franco Benavides MD at [facility] Right: Femur [employer]ynthe[employer] I 02.124.41 8 / / Synthes 214.840 4.5mm 8mm 40mm Self Tap Large Hexagonal Socket Cortex Screw Bone - [id number] Implanted:Qty: 1 on 02/01/2020 by Franco Benavides MD at [facility] Explanted:Qty: 1 on 10/14/2022 by Franco Benavides MD at [facility] Right: Femur [employer]ynthe[employer] I 214.840 / / Synthes 02.231.280 5mm 80mm Variable Angle Self Tap Lock Stardrive Condylar T25 - [id number] Implanted:Qty: 2 on 02/01/2020 by Franco Benavides MD at [facility] Explanted:Qty: 2 on 10/14/2022 by Franco Benavides MD at [facility] Right: Femur Synthes I 231.28 0 / / Procedures Procedure Name Priority Date/Time Associated Diagnosis Comments DEXA AXIAL SKELETON BONE DENSITY 1 OR MORE SITES Schedule Routine, Read Routine (OP Routine) 12/28/2020 2:57 PM CDT Osteopenia, unspecified location from Last 3 Months or Most Recently Relevant to Health Maintenance Results * Dexa Axial Skeleton Bone Density 1 or 2 Site (12/28/2020 2:57 PM CDT) Anatomical Region Laterality Modality Body N/A Radiographic Liz ging Narrative 01/04/2021 12:57 PM CDT Patient Name: Cait Ma Date of : 1960 Date of scan: 12/28/2020 Bone mineral density was performed on a HoloReadyPulse Discovery Densitometer. Based on machine cross-calibration and precision studies the least significant changes of this densitometer is 0.024 g/cm2 at the spine, 0.020 g/cm2 at the total proximal femur, and 0.014g/cm2 at the forearm. HISTORY: This is a 60 y.o. postmenopausal female. She reports that she has been smoking. She has never used smokeless tobacco. She is currently on treatment with anti-seizure medications and anticoagulants and was previously treated with hormone replacement therapy. She has a current complaint of back pain. INDICATIONS: Menopause status, vitamin D deficiency and screening for osteoporosis. FINDINGS: BONE MINERAL DENSITY OF THE LUMBAR SPINE Bone Mineral Density (BMD) of the lumbar spine was measured from L1-L4 and the average density was calculated to be 0.720 gm/cm2. This corresponds to a T-score (standard deviations from the mean of young adults) of -3.0. There is no previous study available for comparison. BONE MINERAL DENSITY OF THE PROXIMAL FEMUR Bone Mineral Density (BMD) of the left hip total was found to be 0.742 gm/cm2. This corresponds to a T-score standard deviations from the mean of young adults of -1.6. Femoral neck is 0.619 gm/cm2 with a T-score (standard deviations from the mean of young adults) of -2.1. There is no previous study available for comparison. SUMMARY: Bone mineral density shows evidence of osteoporosis and marked increase risk of fracture. ADDITIONAL COMMENTS: The history and data sections of the bone mineral density scan were prepared by Olivia Jordan) [employer] who is accredited by the International Society of Clinical Densitometry. The overall patient assessment and scan interpretation were performed by Brooke Renee M.D. who is certified by the International Society of Clinical Densitometry. [id number] Bennett Shah MD IMG DXA PROCEDURES Final Resul t from Last 3 Months or Most Recently Relevant to Health Maintenance Insurance [facility] MEDICARE [facility] MEDICARE Member Subscriber Plan / Payer (Ef fective 2021-Present) Name:Cait Ma Relation to Subscriber:Self Name:Cait Ma Payer ID:[id number] (NAIC) Type:MEDICAID RISK OTHER Address: [address] [address] MEDICARE Advance Directives For more information, please contact: [phone] * Full Code (Latest Code Status on File) Date Activated Date Inactivated Comments 01/31/2020 2:21 AM 02/02/2020 7:15 PM Care Teams Metal Trim Erector Relationship Specialty Start Date End Date Shmuel Langley MD PCP - General 01/30/20
--- OUTSIDE RECORDS SUMMARY | 2025-04-22 08:58 | XMS_ITS | Clinical Summary ---
Author Organization [facility] Address [address] [place] [address] Care Team Providers Care Ruby Rails Developer Name Role Phone Shmuel Langley MD Primary Care Provider [phone] Radha Davidson MD Unavailable [phone] Rubina Bach MD Unavailable [phone] Source Comments [facility],non-owned Affiliates and Associated Physician Practices is amultiple site organization consisting of ambulatory clinics and hospital sitesin [place] and [place]. This disclosure is being madepursuant to the Care Everywhere program and may not contain all information available regarding this patient. Last updated 18.[facility] Allergies Active Allergy Reactions Criticality Noted Date Comments Iodine Rash Low 06/18/2013 Medications * Be aware that medications may not be up to date on this document. Alwaysverify current medications with the patient. aspirin 81 MG chew tablet Take 1 Tab by mouth once daily. 3 Active simvastatin (ZOCOR) 5 MG tablet Take 8 (eight) tablets by mouth at bedtime Active warfarin (COUMADIN) 7.5 MG tablet Take 1 Tab by mouth once daily. 15 Tab 0 4 Active famotidine (PEPCID) 20 MG tablet Take 1 (one) tablet by mouth 2 times daily Active sertraline (ZOLOFT) 100 MG tablet Take 125 mg by mouth once daily Active ondansetron (ZOFRAN) 8 MG tablet Take 1 (one) tablet by mouth every 6 hours as needed for Nausea/Vomi ting Active albuterol HFA (VENTOLIN HFA) 108 (90 BASE) MCG/ACT inhaler Inhale 2 (two) puffs by mouth every 6 hours as needed Active umeclidinium-vilante rol (ANORO ELLIPTA) 62.5-25 MCG/INH inhaler Inhale 1 Puff by mouth once daily 1 Inhaler 3 6 Active ALPRAZolam (XANAX) 0.5 MG tablet Take 1 (one) tablet by mouth once daily as needed for Anxiety 6 Active furosemide (LASIX) 20 MG tablet Take 1 (one) tablet by mouth once daily 2 6 Active HYDROcodone-acetamin ophen ([place]) 10-325 MG tablet Take 1 (one) tablet by mouth 4 times daily Active traZODone (Desyrel) 100 MG tablet Take 1 (one) tablet by mouth at bedtime Active iron polysaccharides (Niferex 150) 150 MG capsule Take 1 (one) capsule by mouth once daily 30 capsule 3 Active vitamin D3 (Cholecalciferol) 10 MCG (400 UNIT) tablet Take 1 (one) tablet by mouth once daily 30 tablet 3 Active oxyCODONE, immediate release, (Roxicodone) 5 MG tabletIndications:Po stoperative pain Take 2 (two) tablets by mouth every 6 hours as needed for Pain 48 tablet 3 Active Active Problems Problem Noted Date Diagnosed Date Fall 01/04/2023 Closed fracture of neck of r ight humerus with routine healing 01/04/2023 Closed fracture of shaft of humerus 01/04/2023 Closed fracture of shaft of right femur with routine healing 01/04/2023 On continuous oral anticoagulation 01/04/2023 Fall, initial encounter 01/04/2023 Closed fracture of right fem ur, unspecified fracture morphology, unspecified portion of femur, initial encounter 01/04/2023 Closed displaced comminuted fracture of shaft of right humerus, initial encounter 01/04/2023 Closed displaced fracture of surgical neck of right humerus, unspecified fracture morphology, initial encounter 01/04/2023 Mitral and aortic insufficiency 09/26/2013 MR (mitral regurgitation) 09/26/2013 S/P MVR (mitral valve replacement) 09/26/2013 Congestive heart failure Overview (05/18/2015): due to MR Mitral valve disorder Overview (05/18/2015): Essential hypertension Overview (05/18/2015): Chronic obstructive pulmonary disease (COPD) SOB (shortness of breath) Immunizations Immunization Administration Dates Next Due INFLUENZA VACCINE 05/30/2016,05/18/2013 PNEUMOCOCCAL PPSV23 06/17/2013 TDAP (7yrs+) 01/04/2023 Family History Medical History Relation Name Comments Heart Failure Father Heart Failure Mother Heart Failure Sister Relation Name Status Comments Father Mother Sister Social History Tobacco Use Types Packs/Day Years [...] housing, medical care, and heating? Hard 01/04/2023 [facility] - Occupational Stress [...] place to sleep or slept in a group home (including now)? 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 Gender Identity Not on file Sexual Orientation Not on file Last Filed Vital Signs Vital Sign Reading Time Taken Comments Blood Pressure 112/54 01/12/2023 11:01 AM CDT Pulse 58 01/12/2023 11:01 AM CDT Temperature 36.7 C (98.1 F) 01/12/2023 11:01 AM CDT Respiratory Rate 20 01/12/2023 11:01 AM CDT Oxygen Saturation 94% 01/12/2023 11:01 AM CDT Inhaled Oxygen Concentration 40% 09/22/2013 8 :43 AM OPERATIONS RESEARCH ANALYST Weight 83.9 kg (185 lb) 02/24/2023 10:35 AM CDT Height 170.2 cm (5' 7) 02/24/2023 10:35 AM CDT Body Mass Index 28.98 02/24/2023 10:35 AM CDT Plan of Treatment Health Maintenance Due Date Last Done Comments COLOGUARD (AGES 45-75) - COLON CA SCREENING 1958 COLON MONITORING 1958 COLONOSCOPY - COLON CA SCREENING 1958 CT COLONOGRAPHY - COLON CA SCREENING 1960 Colorectal Cancer Screening 1958 FIT - COLON CA SCREENING 1958 FLEX SIG - COLON CA SCREENING 1958 MAMMOGRAM 1958 ZOSTER VACCINE (1 of 2) 2008 PNEUMOCOCCAL VACCINE 50+ (2 of 2 - PCV) 06/17/2014 06/17/2013 Respiratory Syncytial Virus (RSV) Vaccine Pt: or over 60 yrs (1 - Risk 60-74 years 1-dose series) 2018 DEPRESSION SCREENING 08/18/2024 MEDICARE AWV CALENDAR YEAR 2024 COVID-19 VACCINE (2024- season) 2025 06/04/2022, 08/14/2021, 11/16/2020, Additional history exists INFLUENZA VACCINE (#1) 2025 2, 06/06/2021, 06/07/2020, Additional history exists SCREENING FOR DIABETES 01/20/2026 3, 01/16/2023, 01/15/2023, Additional history exists DTAP/TDAP/TD VACCINES (2 - Td or Tdap) 01/04/2033 01/04/2023 HEPATITIS C SCREENING Completed 06/18/2013 BONE DENSITY TESTING Completed 12/28/2020 HEPATITIS B VACCINE Aged Out No longe r eligible based on patient's age to complete this topic HIB VACCINE Aged Out No longer eligi ble based on patient's age to complete this topic HPV VACCINE Aged Out No longer eligi ble based on patient's age to complete this topic MENINGOCOCCAL (Group B) VACCINE SHARED DECISION-MAKING Aged Out No longer eligible based on patient's age to complete this topic MENINGOCOCCAL GROUPS A/C/Y/W VACCINE Aged Out No longer eligible based on patient's age to complete this topic Medical Devices Implanted Type Area Cloud Solutions Architect Device Identifier Shelf Expiration Date Model / Serial / Lot Vlv [facility] Std Cuff Poly Rot 27mm - [id number] Implanted:Qty: 1 on 09/21/2013 at [facility] [employer] 07/16/2016 [id number] / [id number] / Screw 4mm 26mm Slf-Tap Hum [place] Trgn Ti Implanted:Qty: 1 on 01/06/2023 by Leatha Hutchison MD at [facility] Right: [employer] 05/20/2030 [id number] / / [id number] 11.5mmx 40cm Right Trigen Ames-Fan Trochanteric Antegrade Nail Implanted:Qty: 1 on 01/06/2023 by Leatha Hutchison MD at [facility] Right: Hip [employer] 11/03/2029 [id number] / / [id number] Ames-Fan Leg/Compression Screw Kit 90mm Lag Screw Implanted:Qty: 1 on 01/06/2023 by Leatha Hutchison MD at [facility] Right: Hip [employer] 10/25/2031 [id number] / / [id number] Screw 5mm 45mm Lopro Intnl Hex Fem Trgn Implanted:Qty: 1 on 01/06/2023 by Leatha Hutchison MD at [facility] Right: Hip [employer] 02/05/2032 [id number] / / [id number] Nail Im 8/7mm 24cm Trgn Hum Bnt Ti Implanted:Qty: 1 on 01/06/2023 by Leatha Hutchison MD at [facility] Right: [employer] 05/17/2028 [id number] / / [id number] Screw 5mm 40mm Slf-Tap Hum Canc Trgn Ti Implanted:Qty: 1 on 01/06/2023 by Leatha Hutchison MD at [facility] Right: [employer] 12/01/2025 [id number] / / [id number] Screw 5mm 32mm Slf-Tap Hum Canc Trgn Ti Implanted:Qty: 1 on 01/06/2023 by Leatha Hutchison MD at [facility] Right: [employer] 04/11/2030 [id number] / / [id number] Screw 5mm 40mm Slf-Tap Hum Canc Trgn Ti Implanted:Qty: 1 on 01/06/2023 by Leatha Hutchison MD at [facility] Right: [employer] 04/11/2030 [id number] / / [id number] Explanted Type Area Cloud [employer] Architect Device Identifier Shelf Expiration Date Model / Serial / Lot Screw 4mm 22mm Hum [place] Slf-Tap Trgn Ti Explanted:Qty : 1 on 01/06/2023 at [facility] Right: [employer] 03/25/2026 [id number] / / [id number] Nail Im 8/7mm 16cm Trgn Hum Str Ti Explanted:Qty : 1 on 01/06/2023 at [facility] Right: [employer] 02/25/2030 [id number] / / [id number] Procedures Procedure Name Priority Date/Time Associated Diagnosis Comments BASIC METABOLIC PANEL (CALCIUM TOTAL) Routine 01/20/2023 3:43 PM CDT HEPATITIS SCREEN ACUTE AM Draw 06/18/2013 4:22 AM CDT from Last 3 Months or Most Recently Relevant to Health Maintenance Results * (ABNORMAL) BASIC METABOLIC PANEL (CALCIUM TOTAL) (01/20/2023 3:43 PM CDT) Glucose 115(H) 70 - 105 mg/dL 01/20/2023 5:47 PM CDT [facility] Sodium 135(L) 136 - 145 mmol/L 01/20/2023 5:47 PM CDT [facility] Potassium 4.5 3.5 - 5.1 mmol/L 01/20/2023 5:47 PM CDT [facility] Chloride 105 98 - 107 mmol/L 01/20/2023 5:47 PM CDT [facility] CO2 22(L) 23 - 31 mmol/L 01/20/2023 5:47 PM CDT [facility] Calcium 8.9 8.4 - 10.4 mg/dL 01/20/2023 5:47 PM CDT [facility] Anion Gap 8 8 - 18 mmol/L 01/20/2023 5:47 PM CDT [facility] BUN 14 9.8 - 20.1 mg/dL 01/20/2023 5:47 PM CDT [facility] Creatinine 0.87 0.57 - 1.11 mg/dL 01/20/2023 5:47 PM CDT [facility] eGFR by CKD-EPI 74(L) >=90 mL/min/1.7 3 m2 01/20/2023 5:47 PM CDT [facility] Blood BLOOD SPECIMEN / Unknown Venipuncture / Unknown 01/20/2023 3:43 PM CDT 01/20/2023 5:32 PM CDT us Sophie Mabry MD LAB - CHEMISTRY ORDERABLES Fin al Result [facility] [address] [place] [address] * HEPATITIS SCREEN ACUTE (06/18/2013 4:22 AM CDT) HAV Antibody IgM Non Reactive Non Reactive 06/18/2013 11:06 AM CDT [facility] HBsAg Non Reactive Non Reactive 06/18/2013 11:06 AM CDT [facility] HBc Antibody IgM Non Reactive Non Reactive 06/18/2013 11:06 AM CDT [facility] HCV Antibody Screen Non Reactive Non Reactive 06/18/2013 11:06 AM CDT [facility] Blood BLOOD SPECIMEN / Unknown 06/18/2013 4:22 AM CDT 06/18/2013 4:30 AM CDT Narrative [facility] - 06/18/2013 11:06 AM CDT Nonreactive - Antibodies to HCV were not detected, result does not exclude early acute HCV infection. Coni Dejesus MD LAB - CHEMISTRY ORDERABLES Final Result Performing Organization Address [facility] Co de Phone Number [facility] [address] [place] [address] from Last 3 Months or Most Recently Relevant to Health Maintenance Insurance [place] DUAL ADV [facility] [employer] LIABILITY Advance Directives * Full Code (Latest Code Status on File) Date Activated Date Inactivated Comments 01/15/2023 3:58 PM 01/23/2023 11:56 AM * Full Code Date Activated Date Inactivated Comments 01/04/2023 9:03 PM 01/12/2023 6:28 PM * Full Code Date Activated Date Inactivated Comments 11/05/2013 3:58 PM 11/06/2013 5:07 PM * FULL RESUSCITATION Date Activated Date Inactivated Comments 09/21/2013 2:45 PM 09/26/2013 1:20 PM * FULL RESUSCITATION Date Activated Date Inactivated Comments 08/02/2013 4:42 PM 08/04/2013 2:46 PM Care Teams Ruby Rails Developer Relationship Specialty Start Date End Date Shmuel Langley MD [address] [place] [address] PCP - General 09/08/12 [place] [address] [address] [place] [address] Cell Support Operator Cardiovascular Disease 07/06/13 [place] [address] [address] Pulmonary Disease 05/06/16
--- OUTSIDE RECORDS SUMMARY | 2025-04-22 08:58 | XMS_ITS | Clinical Summary ---
Author Organization [facility] Address [address], [address] [address] Phone Care Team Providers Care Conference Coordinator Name Role Phone Shmuel Langley MD Primary Care Provider Social History Tobacco Use Types Packs/Day Years Used Date Smoking Tobacco: Never Assessed Comments Unknown Sex and Gender Information Value Date Recorded Sex Assigned at Not on file Legal Sex Female 8:24 AM CDT Gender Identity Not on file Sexual Orientation Not on file Plan of Treatment Health Maintenance Due Date Last Done Comments Hepatitis C Virus (HCV) Screening 1960 TdaP Immunization 1958 Cologuard 2003 Colonoscopy 2003 Colorectal Cancer Screening 2003 Immunochemical Fecal Occult Blood 2003 Pneumococcal Immunization (5 0+ years) (1 of 1 - PCV) 2008 Zoster Immunization (1 of 2) 2008 SARS-COV-2 Immunization (1 - season) 2024 Influenza Immunization (#1) 2025 Respiratory Syncytial Virus (RSV) Immunization (Adult) (1 - 1-dose 75+ series) 2033 Hepatitis B Immunization Aged Out No longer eligible based on patient's age to complete this topic Human Papillomavirus (HPV) Immunization Aged Out No longer eligible b ased on patient's age to complete this topic Meningococcal Immunization (ACWY) Aged Out No longer eligible based on patient's age to complete this topic Rotavirus Immunization Aged Out No lo nger eligible based on patient's age to complete this topic Insurance MEDICARE Care Teams Conference Coordinator Relationship Specialty Start Date End Date Shmuel Langley MD [address] [address] PCP - General Family Medicine 03/04/19
== END 2025-04-22 08:52 | disposition home or self-care (01) ==
PROVIDERS: PCP Family Medicine; Visit Provider Internal Medicine Cardiovascular Disease
DX: I10 Essential (primary) hypertension (principal)
CPT/HCPCS: 93976